=== PATIENT | female | born 1940 | race Caucasian/White ===

== ENCOUNTER 2016-12-27 16:52 | Emergency (ER) | payer MEDICARE ==
[~2016-12-27] VITALS: Ht 160 cm; Wt 55.8 kg
[2016-12-27 17:29] VITALS: BP 193/73
--- NOTE | 2016-12-27 18:21 | PHYS DOC ---
Past Medical History Past Medical History: Hypertension Additional Past Medical Histor: rheumatoid arthritis Past Surgical History: No Surgical History Alcohol Use: Heavy Additional Information: 2-3 beers daily Drug Use: None Adult General Chief Complaint Chief Complaint: LOWER EXT PAIN HPI HPI Patient is a 76 year old female who presents with complaint of left ankle and foot swelling. Patient states that her symptoms started 2 days ago [place]. Patient states that she has history rheumatoid arthritis is currently on medication for control. Patient states that both ankles and feet became very red and swollen and painful with ambulation. Patient states that her right foot and ankle have improved but her left foot and ankle remain swollen and red. Patient denies any other symptoms. The patient was advised to come to the emergency department for evaluation due to recent flight to rule out possible blood clot by her primary physician's office. Patient denies any chest pain or shortness of breath. Patient denies history of DVT. Patient states overall her symptoms in the left ankle have improved since onset. Patient rates her pain currently is 4 out of 10. Review of Systems Review of Systems Constitutional: Denies fever or chills [] Eyes: Denies change in visual acuity, redness, or eye pain [] HENT: Denies nasal congestion or sore throat [] Respiratory: Denies cough or shortness of breath [] Cardiovascular: No additional information not addressed in HPI [] GI: Denies abdominal pain, nausea, vomiting, bloody stools or diarrhea [] : Denies dysuria or hematuria [] Musculoskeletal: Left foot and ankle swelling [] Integument: Denies rash or skin lesions [] Neurologic: Denies headache, focal weakness or sensory changes [] Allergies Allergies Allergies Coded Allergies Type Severity Reaction Last Updated Verified Penicillins Allergy Unknown 12/27/16 Yes pineapple Allergy Unknown 12/27/16 Yes Physical Exam Physical Exam Constitutional: Alert, afebrile, no acute distress. [] HENT: Normocephalic, atraumatic, bilateral external ears normal, oropharynx moist, no oral exudates, nose normal. [] Eyes: PERRLA, EOMI, conjunctiva normal, no discharge. [] Neck: Normal range of motion, no tenderness, supple, no stridor. [] Cardiovascular:Heart rate regular rhythm, no murmur [] Lungs & Thorax: Bilateral breath sounds clear to auscultation [] Abdomen: Bowel sounds normal, soft, no tenderness, no masses, no pulsatile masses. [] Skin: Warm, dry, no erythema, no rash. [] Back: No tenderness, no CVA tenderness. [] Extremities: Left ankle with moderate soft tissue swelling and erythema, mild medial and lateral malleoli are tenderness to palpation, minimal left calf tenderness, full range of motion present in left ankle, right ankle with mild soft tissue swelling and no erythema, full range of motion present, bilateral dorsalis pedis and posterior tibialis pulses 2+. [] Neurologic: Alert and oriented X 3, normal motor function, normal sensory function, no focal deficits noted. [] Current Patient Data Vital Signs Vital Signs Date Time Temp Pulse Resp B/P Pulse Ox O2 Delivery O2 Flow Rate FiO2 12/27/16 17:29 98.1 88 22 193/73 95 Room Air 98.1 EKG EKG Not performed [] Radiology/Procedures Radiology/Procedures [facility] [address] [place] [address] IMAGING REPORT Signed PATIENT: OMEGA ARMSTRONG ACCOUNT: [id number] : 1940 LOCATION: ER AGE: 76 SEX: F EXAM STATUS: REG ER ORD. PHYSICIAN: PETRONA MATHIAS MD REASON: left foot and ankle swelling, rule out DVT PROCEDURE: VENOUS LOWER EXTREMITY LEFT PROCEDURE: Left lower extremity venous Doppler ultrasound. HISTORY Swelling and redness of left foot and ankle. Recent flight from [place]. COMPARISON None. TECHNIQUE Real-time grayscale, color flow, and Doppler spectral waveform analysis of the deep veins of the lower extremity/ies performed. FINDINGS All visualized vein segments demonstrate normal compressibility and augmentation and color flow. Color flow seen within calf veins. IMPRESSION No evidence of left lower extremity deep vein thrombosis. Electronically signed by: Masood Duarte MD (Dec 27, 2016 19:16:42) DICTATED and SIGNED BY: MASOOD DUARTE MD DATE: 12/27/161915 CC: PETRONA MATHIAS MD; NIURKA HE MD ~ [] Course & Med Decision Making Course & Med Decision Making Pertinent Labs and Imaging studies reviewed. (See chart for details) The patient's ultrasound imaging was negative for DVT and patient's x-ray was negative for fracture and for subcutaneous gas. The patient's symptoms appear to be the result of reactive or inflammatory arthritis. Patient advised to take low-dose naproxen and Tylenol as needed for symptoms and recommended elevation of the affected extremity to assist with reduction of swelling. Recommended follow-up with the patient's primary physician in the next 2-3 days and return to emergency department for any worsening symptoms. Patient voiced understanding and in agreement with treatment plan. Dragon Disclaimer Dragon Disclaimer This electronic medical record was generated, in whole or in part, using a voice recognition dictation system. Departure Departure Impression: Primary Impression: Inflammatory arthritis Disposition: 01 HOME, SELF-CARE Condition: IMPROVED Referrals: NIURKA HE MD (PCP) Patient Instructions: Arthritis, Reactive Additional Instructions: Follow-up with your primary doctor in the next 2-3 days. Return to the emergency department for any worsening symptoms. PETRONA MATHIAS MD Dec 27, 2016 18:20
--- NOTE | 2016-12-27 19:17 | RAD ---
PROCEDURE: Left lower extremity venous Doppler ultrasound. HISTORY Swelling and redness of left foot and ankle. Recent flight from [place]. COMPARISON None. TECHNIQUE Real-time grayscale, color flow, and Doppler spectral waveform analysis of the deep veins of the lower extremity/ies performed. FINDINGS All visualized vein segments demonstrate normal compressibility and augmentation and color flow. Color flow seen within calf veins. IMPRESSION No evidence of left lower extremity deep vein thrombosis. Electronically signed by: Masood Duarte MD (Dec 27, 2016 19:16:42)
--- NOTE | 2016-12-28 08:59 | RAD ---
Three-view left ankle radiographs 12/27/2016 Clinical history: Left ankle swelling. AP, lateral and oblique digital radiographs of the left ankle were obtained. The left ankle mortise is intact. Mild degenerative changes are seen involving the left ankle joint. No fracture or dislocation of the left ankle is seen. Moderate enthesophyte formation is seen involving the plantar aspect of the posterior left calcaneus. Impression: No fracture or dislocation of the left ankle is seen.
== END 2016-12-27 19:52 | disposition home or self-care (01) ==
LOC: ER 16:52
DX: M19.90 Unspecified osteoarthritis, unspecified site (principal); I10 Essential (primary) hypertension; M06.9 Rheumatoid arthritis, unspecified; Z88.0 Allergy status to penicillin; Z91.018 Allergy to other foods
CPT/HCPCS: 73610; 93971; 99284-25

== ENCOUNTER → 2020-10-07 | Outpatient (CLI) | payer MEDICARE ==
--- NOTE | 2020-10-07 16:41 | CARD ---
MR#: [id number] Date of Study: 10/07/2020 Ordering Physician: PURA PRESTON, Referring Physician: PURA PRESTON, Tech: Cyndie Vega [facility] APPROVED REPORT EXAM: Two-dimensional and M-mode echocardiogram with Doppler and color Doppler. Other Information Quality : Good INDICATION COPD 2D DIMENSIONS RVDd2.2 (2.9-3.5cm)Left Atrium(2D)2.7 (1.6-4.0cm) IVSd0.7 (0.7-1.1cm)Aortic Root(2D)2.6 (2.0-3.7cm) LVDd4.1 (3.9-5.9cm)LVOT Diameter1.9 (1.8-2.4cm) PWd0.8 (0.7-1.1cm)LVDs2.9 (2.5-4.0cm) FS (%) 28.9 %SV40.8 ml LVEF(%)56.1 (>50%) Aortic Valve AoV Peak Raphael.114.4cm/sAoV VTI22.5cm AO Peak GR.5.2mmHgLVOT Peak Raphael.107.2cm/s AO Mean GR.3mmHgAVA (VMAX)2.67cm2 PATRICIA (VTI)2.70cm2 Mitral Valve MV E Gswhwuht565.0cm/sMV DECEL JLUJ522vy MV A Nnkzvyve150.0cm/sE/A Ratio0.9 Tricuspid Valve TR P. Opiicgcf429fb/sRAP FOEXPKSA6hgFg TR Peak Gr.82ldMbPUQE14hqCp Pulmonary Vein S1 Drfgzvsx56.6cm/sD2 Lvtelrdo40.6cm/s LEFT VENTRICLE The left ventricle is normal size. There is normal left ventricular wall thickness. The left ventricu lar systolic function is normal. The Ejection Fraction is 60-65%. There is normal LV segmental wall m otion. Transmitral Doppler flow pattern is Grade I-abnormal relaxation pattern. RIGHT VENTRICLE The right ventricle is normal size. The right ventricular systolic function is normal. ATRIA The left atrium size is normal. The right atrium size is normal. The interatrial septum is intact wit h no evidence for an atrial septal defect or patent foramen ovale as noted on 2-D or Doppler imaging. AORTIC VALVE The aortic valve is calcified but opens well. Doppler and Color Flow revealed no significant aortic r egurgitation. There is no significant aortic valvular stenosis. MITRAL VALVE The mitral valve is calcified but opens well. There is no evidence of mitral valve prolapse. There is no mitral valve stenosis. Doppler and Color-flow revealed trace mitral regurgitation. TRICUSPID VALVE The tricuspid valve is normal in structure and function. Doppler and Color Flow revealed trace tricus pid regurgitation. There is mild to moderate pulmonary hypertension. The PA pressure was estimated at 40 mmHg. There is no tricuspid valve stenosis. PULMONIC VALVE The pulmonic valve is not well visualized. Doppler and Color Flow revealed no pulmonic valvular regur gitation. There is no pulmonic valvular stenosis. GREAT VESSELS The aortic root is normal in size. The ascending aorta is not well seen. The IVC is normal in size an d collapses >50% with inspiration. PERICARDIAL EFFUSION There is no evidence of significant pericardial effusion. Critical Notification Critical Value: No <Conclusion> The left ventricular systolic function is normal. The Ejection Fraction is 60-65%. Transmitral Doppler flow pattern is Grade I-abnormal relaxation pattern. Trace mitral regurgitation. Trace tricuspid regurgitation. There is mild to moderate pulmonary hypertension. The PA pressure was estimated at 40 mmHg. There is no evidence of significant pericardial effusion. Signed by : Stuart Hu, Electronically Approved : 10/07/2020 16:40:31
== END ==
LOC: ECHO 12:44
PROVIDERS: ATTEND Internal Medicine Pulmonary Disease
DX: I08.0 Rheumatic disorders of both mitral and aortic valves (principal); I27.20 Pulmonary hypertension, unspecified
CPT/HCPCS: 93306

== ENCOUNTER → 2021-06-17 | Outpatient (CLI) | payer MEDICARE ==
--- NOTE | 2021-06-24 10:18 | RESP ---
DATE OF SERVICE: 06/17/2021 ATTENDING PHYSICIAN: Dann Rios MD The patient underwent full pulmonary function testing on 06/17. The FEV1 to FVC ratio was 43%. FEV1 was severely decreased at 33% of predicted at 600 mL. FVC was likewise decreased at 58% of predicted at 1.39 liters. There was no significant bronchodilator response. Residual volume was markedly elevated compatible with air trapping. Diffusion capacity was decreased compatible with emphysema. IMPRESSION: 1. Severe airflow limitation. 2. Decreased diffusion capacity. 3. No significant bronchodilator response. 4. Severe air trapping. CORTEZ DR: Khai TID: [id number]
== END ==
LOC: PF 11:09
PROVIDERS: ATTEND Internal Medicine Pulmonary Disease
DX: R06.02 Shortness of breath (principal); R06.00 Dyspnea, unspecified
CPT/HCPCS: 94060; 94640; 94726; 94729; 94664

== ENCOUNTER → 2021-10-12 | Outpatient (CLI) | payer MEDICARE ==
--- NOTE | 2021-10-13 09:36 | KCIC ---
EXAM: Lumbar spine, 3 views; thoracic spine, 3 views. HISTORY: Pain. COMPARISON: None. FINDINGS: Thoracic spine: 3 views of the thoracic spine are obtained. There is multilevel endplate remodeling. There is no fracture or listhesis. There is degenerative endplate remodeling with osteophytosis and f acet arthropathy at the mid cervical levels, not formally assessed on this exam. Lumbar spine: 3 views of the lumbar spine are obtained. There is mild lumbar dextrocurvature. There i s degenerative endplate remodeling with disc space narrowing and osteophytosis at L4-L5. There is fac et arthropathy predominantly at L5-S1. There are few endplate Schmorl's nodes. IMPRESSION: 1. Multilevel degenerative change, primarily at L4-L5 and L5-S1. 2. Degenerative change involving the cervical spine, not formally assessed on this exam. 3. No acute osseous finding. Electronically signed by: Zoey Paris MD (10/13/2021 9:33 AM) [id number]
== END ==
LOC: KCIC 16:02
PROVIDERS: ATTEND Family Medicine
DX: M47.817 Spondylosis without myelopathy or radiculopathy, lumbosacral region (principal); M47.812 Spondylosis without myelopathy or radiculopathy, cervical region; M48.8X2 Other specified spondylopathies, cervical region; M25.78 Osteophyte, vertebrae; M48.8X7 Other specified spondylopathies, lumbosacral region; M51.46 Schmorl's nodes, lumbar region; M48.061 Spinal stenosis, lumbar region without neurogenic claudication; M43.8X6 Other specified deforming dorsopathies, lumbar region
CPT/HCPCS: 72072; 72100

== ENCOUNTER → 2021-11-04 | Day surgery (SDC) | payer MEDICARE ==
[~2021-11-04] MED LIST: AMLO-186 PO; IV RINGERS,LACTATED 1000ML 1,000 ML IV SCH; LEFL10TA13 PO; LOSA1TAB22 PO; METO25TA4 PO
== END | disposition home or self-care (01) ==
LOC: ENDOS 08:07
PROVIDERS: ATTEND Internal Medicine Gastroenterology
DX: Z53.8 Procedure and treatment not carried out for other reasons (principal)